=== PATIENT | female | born 1995 | race Caucasian/White ===

== ENCOUNTER 2016-10-23 22:00 | Inpatient (IN) | payer OTHER ==
[~2016-10-23] VITALS: Ht 167.6 cm; Wt 86.2 kg
--- NOTE | ~2016-10-23 | DS ---
Unit #: [id number] #: [id number] Patient: CARMEN PRITCHETT [id number] [facility] [address] [place] [address] [id number] MR#: [id number] NAME: CARMEN PRITCHETT. ROOM: [facility] Age: 21 Sex: F Admission Date: 10/24/2016 : 1995 Discharge Date: 10/26/2016 Attending Physician: Hernan Childress M.D. Primary Care Physician: Primary Care Physician No DISCHARGE SUMMARY REASON FOR ADMISSION Carmen is a 21-year-old woman, who reports she has been using heroin daily up to 1.5 g. She overdosed in a deliberate suicide attempt and could not contract for safety against another attempt. She was admitted for detox. DIAGNOSTIC STUDIES LABORATORY RESULTS: Beta-hCG was negative. HOSPITAL COURSE The patient was admitted and placed on the opioid detox protocol. Celexa 20 mg daily was added for control of depression and was tolerated well. She engaged in psychotherapy groups and activities, and after a brief period of inpatient detox, her affect and mood were much better, she was active on the unit and interested in CD-IOP. She was able to contract for safety on the date of discharge. DISCHARGE DIAGNOSES AXIS I: Major depression and opioid dependence. AXIS II: No diagnosis. AXIS III: Opioid withdrawal. AXIS IV: AXIS V: DISCHARGE INSTRUCTIONS Follow up with CD-IOP at this facility. DISCHARGE MEDICATIONS Celexa 20 mg daily for depression and trazodone 50 mg at bedtime as needed for insomnia. CONDITION AT DISCHARGE Improved. PROGNOSIS Good. DIET AND ACTIVITY Per primary care doctor. Dictated by... Hernan Childress M.D. Unit #: [id number] #: [id number] Patient: CARMEN PRITCHETT MR/modl TD: 10/26/2016 14:13 JOB #: [id number] DISCHARGE SUMMARY Page 1 of 1 X Hernan Childress MD X DISCHARGE SUMMARY
--- NOTE | ~2016-10-23 | PN ---
Unit #: [id number] #: [id number] Patient: CARMEN PRITCHETT [id number] [facility] [address] [place] [address] [id number] MR#: [id number] NAME: CARMEN PRITCHETT. ROOM: P182 Age: 21 Sex: F Admission Date: 10/24/2016 : 1995 Attending Physician: Hernan Childress M.D. Admitting Physician: Hernan Childress M.D. Primary Care Physician: Primary Care Physician Maribell NEWTON PROGRESS NOTES DATE OF SERVICE: 10/25/2016 DISCUSSION Carmen continues to have detox symptoms, but appears a little bit better today. Her affect is brighter with a better mood. She is alert and fully oriented. Her memory and concentration are fair. Her thought processes are logical with no active psychosis. ASSESSMENT Major depression and opioid dependence. PLAN Continue current medications and withdrawal protocol. Dictated by... Shelli CrainH/lexi TD: 10/27/2016 16:02 JOB #: [id number] [facility] PROGRESS NOTES Page 1 of 1 X Hernan Childress MD X PROGRESS NOTE
--- NOTE | ~2016-10-23 | PA ---
Unit #: [id number] #: [id number] Patient: CARMEN PRITCHETT [id number] [facility] [address] [place] [address] [id number] MR#: [id number] NAME: CARMEN PRITCHETT. ROOM: 82 Age: 21 Sex: F Admission Date: 10/24/2016 : 1995 Date of Assessment: Attending Physician: Hernan Childress M.D. Admitting Physician: Hernan Childress M.D. Primary Care Physician: Primary Care Physician No PSYCHIATRIC ASSESSMENT DATE OF SERVICE 10/24/2016. INFORMANTS The patient, reliable and OLOPkalyan. CHIEF COMPLAINT Heroin overdose. HISTORY OF PRESENT ILLNESS Carmen is a 21-year-old woman, who reports that she has been using heroin and has been "unable to give it up." She uses 1 to 1.5 g daily and said that she overdosed yesterday in a deliberate suicide attempt. This was unsuccessful, but she plans to overdose again to try to kill herself if she is not detoxed and was admitted for stabilization. PAST PSYCHIATRIC HISTORY The patient was last here in 2016 under the care of Dr. Rivera. FAMILY PSYCHIATRIC HISTORY There is no history of family psychiatric illness. SOCIAL HISTORY The patient has been living with her mother in the past, but her social support system has decreased. Please see social security assessor assessment for details. PAST MEDICAL HISTORY Morbid obesity, congenital single kidney, and history of withdrawal seizures. MEDICATIONS Please see MAR. ALLERGIES No known medication allergies. SUBSTANCE ABUSE HISTORY The patient has a long history of polysubstance dependence. MENTAL STATUS EXAMINATION Carmen presented as a mildly disheveled woman, appearing older than her stated age. She was cooperative with the examination. Her speech was Unit #: [id number] #: [id number] Patient: CARMEN PRITCHETT spontaneous and easily understood. Musculoskeletal examination was calm. Her mood was depressed with a flat affect. She was alert and fully oriented. Her memory and concentration were fair. Her thought processes were goal directed with no active psychosis. She did report suicidal ideation with a plan to overdose and could not contract for safety outside of the hospital. Her insight and judgment were fair. Her fund of knowledge and abstraction were intact. ASSETS AND LIABILITIES The patient knows local resources and has supportive family. Liabilities include lack of current stable housing and employment. ADMITTING DIAGNOSES AXIS I: Major depression, F33.2; opioid dependence, F11.20; and history of benzodiazepine abuse. AXIS II: No diagnosis. AXIS III: Opioid withdrawal. AXIS IV: AXIS V: PSYCHIATRIC PLAN The patient was admitted and placed on suicide precautions and the opioid detox protocol. Celexa 20 mg daily will be added for control of depression. She will enroll in dual diagnosis groups and activities. TREATMENT GOALS Resolution of SI, establishment of sobriety, improvement in insight, and improvement in coping skills. DISCHARGE PLANNING Follow up with [facility]. ESTIMATED LENGTH OF STAY 5 days. Dictated by... Hernan Childress M.D. LOLA/lexi TD: 10/24/2016 19:49 JOB #: [id number] PSYCHIATRIC ASSESSMENT Page 1 of 1 X Hernan Childress MD X PSYCHIATRIC ASSESSMENT
--- NOTE | ~2016-10-23 | HP ---
Unit #: [id number] #: [id number] Patient: CARMEN PRITCHETT [id number] [facility] [address] [place] [address] [id number] I MR#: [id number] NAME: CARMEN PRITCHETT. ROOM: P182 Age: 21 Sex: F Admission Date: 10/24/2016 : 1995 Attending Physician: Hernan Childress M.D. Admitting Physician: Hernan Childress M.D. Primary Care Physician: Primary Care Physician No HISTORY AND PHYSICAL History and physical completed on 10/24/2016. HISTORY OF PRESENT ILLNESS Carmen is a 21-year-old female, admitted on 10/24/2016 to [facility] for attempted suicide by overdosing on heroin and detox from heroin. PAST MEDICAL HISTORY Obesity. PAST SURGICAL HISTORY None. SOCIAL HISTORY She smokes one pack of cigarettes daily, occasional alcohol use, and daily use of heroin. She is currently single and living with her father. FAMILY HISTORY Noncontributory. REVIEW OF SYSTEMS CONSTITUTIONAL: No fever or chills. HEENT: Denies any sore throat, ear pain or runny nose. CARDIOVASCULAR: Denies chest pain, irregular heart rhythm or palpitations. CHEST: Denies shortness of breath or cough. No hemoptysis. GASTROINTESTINAL: Denies nausea, vomiting, diarrhea or chronic constipation. ENDOCRINE: Denies history of increased thirst or urination. No recent significant weight loss or gain. GENITOURINARY: Denies dysuria, frequency, or hematuria. SKIN: Denies any rashes. HEMATOLOGIC: Denies history of increased bleeding or bruising. MUSCULOSKELETAL: Denies any hot, swollen joints. No generalized muscle pain. NEUROLOGIC: Denies problems with vision or speech. No frequent, severe headaches. No numbness, tingling or weakness in any extremities. Denies loss of bladder or bowel control. CURRENT MEDICATIONS None. ALLERGIES None. PHYSICAL EXAMINATION Unit #: [id number] #: [id number] Patient: CARMEN PRITCHETT GENERAL: Alert, oriented, and no acute distress. VITAL SIGNS: Blood pressure 130/79, heart rate 101, respirations 18, and temperature 98.1. HEIGHT: 5 feet 6 inches. WEIGHT: 190 pounds. SKIN: Warm and dry without rash or lesion. HEENT: Normocephalic. TMs not viewed. Oral and nasal passages clear. Conjunctivae clear. PERRLA. EOMs intact. NECK: Supple without lymphadenopathy or thyromegaly. HEART: Regular rate and rhythm without murmur. LUNGS: Clear. ABDOMEN: Soft, nontender. : Not done. EXTREMITIES: No evidence of cyanosis, clubbing or edema. Moves all without focal deficit. NEUROLOGICAL: Grossly within normal limits. Cranial Nerves: II: Visual rivas are intact. III, IV AND : Extraocular movements are intact. Pupils are equal, round and reactive to light. V: Facial sensation is grossly normal. VII: Facial movements and expression are normal. VIII: Auditory acuity grossly intact. IX, X: Uvula is midline. Phonation is normal. XI: Patient shrugs shoulders and turns head normally. XII: Tongue protrudes in the midline. Sensory and Motor Function: Sensory and motor sensation is grossly normal. Motor: moves all extremities well. Coordination: Gait is normal. Deep Tendon Reflexes: Intact. IMPRESSION 1. Psychiatric admission. 2. Obesity. RECOMMENDATIONS Psychiatric, per psychiatrist. MEDICAL No contraindications to participating in facility's activities. MEDICAL PROGNOSIS Good. MEDICAL CONDITION Stable. Dictated by... Howard Medina/marine TD: 10/25/2016 11:50 JOB #: [id number] Unit #: [id number] #: [id number] Patient: CARMEN PRITCHETT HISTORY AND PHYSICAL Page 1 of 1 X JULIETH PASTOR APRN X HISTORY AND PHYSICAL
[~2016-10-23 22:00] MED LIST: CELEXA20 MG PO; CLEOCIN PO; FLEXERIL10 MG PO; HEROIN; IBUPROFEN PO; IBUPROFEN800 MG PO; KEFLEX500 M1 PO; MACROBID100 MG PO; NAPROSYN500 MG PO; PROZAC; PYRIDIUM PO; RISPERDAL0.5 MG PO; ROBAXIN PO
[2016-10-25 09:39] LABS: BASOPHIL% 0.5 % (0-2.5); EOSINOPHIL# 0.4 X10e3 (0-0.7); EOSINOPHIL% 5.8 % (0.0-7.0); HEMATOCRIT 41.2 % (35.0-45.0); HEMOGLOBIN 13.8 gm/dL (12.0-16.0); LYMPHOCYTE% 27.5 % (17.0-45.0); MEAN CELL VOLUME 90.5 FL (83-96); MEAN CORPUSCULAR HEMOGLOBIN 30.3 PG (28-34); MEAN CORPUSCULAR HGB CONC 33.5 g/dL (30-36); MEAN PLATELET VOLUME 9.4 FL (6.5-11.5); MONOCYTE# 0.5 X10e3 (0-1.0); MONOCYTE% 6.9 % (3.0-12.0); NEUTROPHIL# 4.2 X10e3 (1.5-7.1); NEUTROPHIL% 59.3 % (40-75); PLATELET COUNT 227 X10e3 (140-420); RED BLOOD COUNT 4.55 X10e (3.90-5.30); RED CELL DISTRIBUTION WIDTH 12.5 % (11.0-15.5); WHITE BLOOD COUNT 7.2 X10e3 (4.0-10.5)
[2016-10-25 09:45] LABS: DIFF IND NO
[2016-10-25 10:28] LABS: URINE APPEARANCE CLEAR; URINE BILIRUBIN NEG (NEG); URINE BLOOD NEG (NEG); URINE COLOR YELLOW; URINE GLUCOSE NEG (NEG); URINE KETONE NEG (NEG); URINE LEUKOCYTE ESTERASE 1+ (NEG); URINE NITRATE NEG (NEG); URINE PH 7.5 (5-8); URINE PROTEIN NEG (NEG); URINE SPECIFIC GRAVITY 1.015 (1.003-1.035)
[2016-10-25 10:33] LABS: URINE SQUAMOUS EPITHELIAL CELL MOD /[HPF]
[2016-10-25 10:46] LABS: ALBUMIN SERUM 4.2 g/dL (3.5-5.0); BILIRUBIN,TOTAL 0.6 mg/dL (0.2-2.0); CALCIUM SERUM 9.4 mg/dL (8.4-10.2); CREATININE SERUM 0.6 mg/dL (0.6-1.4); GLOM FILT RATE Estimated 131.2 mL/min (>60); PROTEIN TOTAL SERUM 7.4 g/dL (6.0-8.3)
[2016-10-25 11:05] LABS: URINE MUCUS PRESENT
[2016-10-25 11:06] LABS: URINE BACTERIA AUWI 1+ (NEGATIVE)
[2016-10-25 11:20] LABS: AMPHETAMINE NEG (NEG); BARBITURATES NEG (NEG); BENZODIAZEPINES NEG (NEG); COCAINE NEG (NEG); MARIJUANA POS (NEG); OPIATES POS (NEG); TRICYCLIC ANTIDEPRESSANTS NEG (NEG); U METHADONE NEG (NEG)
== END 2016-10-26 11:35 | DRG 885 ==
LOC: P1S 10-24 02:55 → P1E 10-24 02:55
PROVIDERS: Psychiatry & Neurology Psychiatry
PROC: HZ2ZZZZ Detoxification Services for Substance Abuse Treatment (ICD-10-PCS; principal; 2016-10-24)
DX: F33.2 Major depressive disorder, recurrent severe without psychotic features (principal); Q60.0 Renal agenesis, unilateral; R45.851 Suicidal ideations; F11.23 Opioid dependence with withdrawal; E66.01 Morbid (severe) obesity due to excess calories
CPT/HCPCS: 80053; 80307; 81003; 84703; 85025